=== PATIENT | female | born 1940 | race African-American/Black ===

== ENCOUNTER 2021-08-09 17:29 | Emergency (ER) | payer OTHER ==
[~2021-08-09] VITALS: Ht 165.1 cm; Wt 80.0 kg
[2021-08-09] MEDS ORDERED: SODIUM CHLORIDE 0.9% 1,000 ML IV ONE (19:00)
[2021-08-09 20:50] LABS: BASOPHILS % 0.1 % (0.0-2.0); HEMOGLOBIN. 15.2 g/dL (12.0-16.0); LYMPHOCYTES % 7.2 % (20.0-50.0); MEAN CORPUSCULAR HEMOGLOBIN 27.7 pg (28.0-32.0); MEAN CORPUSCULAR VOLUME 85.7 fL (81.0-99.0); MEAN PLATELET VOLUME 9.5 fl (7.4-10.4); MONOCYTES % 5.7 % (2.0-8.0); PLATELET 273 x1000/uL (130-400); RED BLOOD CELL COUNT 5.49 mill/uL (4.2-5.4); RED CELL DISTRIBUTION WIDTH 15.7 % (11.6-14.6)
[2021-08-09 21:05] LABS: CHLORIDE 108 mEq/L (98-107)
[2021-08-09] MEDS ORDERED: INSULIN REGULAR (HUMULIN R) 300UNITS/3ML VIAL IV NR (21:45)
[2021-08-09] MEDS ORDERED: DEXTROSE 50% WATER 50ML SYRINGE IV NR (21:45)
[2021-08-09] MEDS ORDERED: SODIUM CHLORIDE 0.9% 1000ML BAG (SEPSIS BOLUS) IV NR (21:45)
[2021-08-09] MEDS ORDERED: CALCIUM CHLORIDE 1GM/10ML SYR IV NR (21:45)
[2021-08-09 21:53] LABS: ETHANOL BLOOD < 10 mg/dL
[2021-08-09] MEDS ORDERED: PIPERACILLIN/TAZ 3.375G PREMIX 50 ML IV NR (22:00)
[2021-08-09] MEDS ORDERED: VANCOMYCIN 1G PREMIX 200 ML IV NR (22:00)
[2021-08-09 22:02] LABS: CLARITY URINE CLEAR (CLEAR); COLOR URINE YELLOW (YELLOW); KETONES URINE TRACE (NEGATIVE); LEUKOCYTE ESTERASE URINE NEGATIVE (NEGATIVE); NITRITE URINE NEGATIVE (NEGATIVE); OCCULT BLOOD URINE NEGATIVE (NEGATIVE); PROTEIN URINE TRACE (NEGATIVE); SPECIFIC GRAVITY URINE 1.022 (1.005-1.030); UROBILINOGEN URINE 0.2 E.U./dL (0.2-1.0)
[2021-08-09 22:10] LABS: CREATINE KINASE 1083 IU/L (26-192)
[2021-08-09 22:18] LABS: *BENZODIAZEPINES SCREEN URINE NEGATIVE (NEGATIVE); *COCAINE SCREEN URINE NEGATIVE (NEGATIVE)
[2021-08-09 22:20] LABS: *AMPHETAMINES SCREEN URINE NEGATIVE (NEGATIVE); CANNABINOID URINE SCREEN NEGATIVE (NEGATIVE); METHADONE URINE SCREEN NEGATIVE (NEGATIVE); OPIATES URINE SCREEN NEGATIVE (NEGATIVE); PHENCYCLIDINE URINE SCREEN NEGATIVE (NEGATIVE)
[2021-08-09] MEDS ORDERED: DEXTROSE 50% WATER 50ML SYRINGE IV ONE (22:30)
[2021-08-10 01:00] VITALS: BP 138/108
[2021-08-10 22:23] LABS: *BARBITURATES SCREEN URINE NEGATIVE (NEGATIVE)
== END 2021-08-10 02:28 | disposition short-term general hospital (02) ==
LOC: ER 17:29 → CANBEDREQ 08-10 00:34 → ER 08-10 01:46
DX: G93.40 Encephalopathy, unspecified (principal); E87.5 Hyperkalemia; I10 Essential (primary) hypertension; R62.7 Adult failure to thrive; Z68.29 Body mass index [BMI] 29.0-29.9, adult; E87.2 Acidosis; R77.8 Other specified abnormalities of plasma proteins; Z20.822 Contact with and (suspected) exposure to COVID-19
CPT/HCPCS: 36415; 70450; 71045; 80053; 80305; 80320; 81003; 82550; 82962; 83605; 83880; 84145; 84484; 85025; 87040; 87086; 87426; 93005; 96361; 96365; 96367; 96375; 99285; J1815; J2543; J3370; J3490; J7030; G0480